=== PATIENT | male | born 1995 | race Caucasian/White ===

== ENCOUNTER 2022-04-08 17:44 | Emergency (ER) | payer MEDICAID, OTHER ==
[~2022-04-08] VITALS: Ht 170.2 cm; Wt 63.0 kg
[2022-04-09] VITALS: BP 125/90
[2022-04-10 08:12] LABS: HIV SCREEN 4G Non Reactive (Non Reactive)
[2022-04-10 16:14] LABS: HEPATITIS B SURFACE AB < 3.1 mIU/mL
[2022-04-10 16:25] LABS: HEPATITIS B SURFACE ANTIGEN NEGATIVE
== END 2022-04-09 00:10 | disposition home or self-care (01) ==
LOC: ER 17:55
DX: Z20.89 Contact with and (suspected) exposure to other communicable diseases (principal); F41.9 Anxiety disorder, unspecified
CPT/HCPCS: 36415; 86705; 86706; 86709; 86803; 87340; 87389; 99281

== ENCOUNTER 2022-05-16 10:47 | Emergency (ER) | payer OTHER ==
[~2022-05-16] VITALS: Ht 170.2 cm; Wt 64.0 kg
[2022-05-16 10:57] VITALS: BP 104/63
[2022-05-16] MEDS ORDERED: NAPR-1176 MT (12:35)
== END 2022-05-16 13:45 | disposition home or self-care (01) ==
LOC: ER 10:47
DX: S09.90XA Unspecified injury of head, initial encounter (principal); W18.39XA Other fall on same level, initial encounter; Y93.89 Activity, other specified; Y92.89 Other specified places as the place of occurrence of the external cause; Y99.8 Other external cause status; Z00.00 Encounter for general adult medical examination without abnormal findings; F12.10 Cannabis abuse, uncomplicated
CPT/HCPCS: 99284